=== PATIENT | male | born 1935 | race Caucasian/White ===

== ENCOUNTER 2018-09-04 16:38 | Emergency (ER) | payer OTHER ==
[~2018-09-04] VITALS: Ht 177.8 cm; Wt 81.6 kg
[2018-09-04 16:38] VITALS: BP_SYST 165
[2018-09-04 17:29] LABS: ANION GAP 7 (5-15); CALCIUM 8.7 mg/dL (8.4-11.0); CHLORIDE 105 mmol/L (98-107); CREATININE 1.71 mg/dL (0.55-1.30); GLUCOSE 168 mg/dL (70-99); POTASSIUM 3.9 mmol/L (3.5-5.1); SODIUM SERUM 137 mmol/L (136-145); UREA NITROGEN, BLOOD 25 mg/dL (8-21)
[2018-09-04 17:32] LABS: PROTHROMBIN TIME 10.1 SECS (9.5-12.5)
[2018-09-04 17:34] LABS: BASOPHILS % (AUTO) 0.5 % (0.0-2.0); EOSINOPHILS # (AUTO) 0.2 K/uL (0.0-0.4); EOSINOPHILS % (AUTO) 3.6 % (0.0-4.0); HEMATOCRIT 42.9 % (36-54); HEMOGLOBIN 14.2 g/dL (14.0-18.0); LYMPHOCYTES # (AUTO) 1.4 K/uL (1.0-5.5); LYMPHOCYTES % (AUTO) 25.3 % (20.5-51.5); MEAN CORPUSCULAR HEMOGLOBIN 28 pg (27-31); MEAN CORPUSCULAR HGB CONC 33 % (32-36); MEAN CORPUSCULAR VOLUME 84 fL (79.0-98.0); MONOCYTES # (AUTO) 0.6 K/uL (0.0-1.0); MONOCYTES % (AUTO) 9.8 % (1.7-9.3); NEUTROPHILS # (AUTO) 3.5 K/uL (1.8-7.7); NEUTROPHILS % (AUTO) 60.8 % (40.0-70.0); PLATELET COUNT (AUTO) 163 K/uL (130-430); RED BLOOD CELL COUNT(AUTO) 5.09 MIL/uL (4.2-6.2); RED CELL DISTRIBUTION WIDTH 13.6 % (9.0-15.0); WHITE BLOOD COUNT (AUTO) 5.7 K/uL (4.8-10.8)
[2018-09-04 17:47] LABS: ALANINE AMINOTRANSFERASE 23 U/L (12-78); ALBUMIN 3.6 g/dL (3.4-4.8); ASPARTATE AMINOTRANSFERASE 15 U/L (10-37); TOTAL BILIRUBIN 0.3 mg/dL (0.0-1.0)
[2018-09-04 19:00] VITALS: BP_SYST 158
== END 2018-09-04 19:00 | disposition home or self-care (01) ==
LOC: SED 16:38
DX: N28.9 Disorder of kidney and ureter, unspecified (principal); R55 Syncope and collapse; K21.9 Gastro-esophageal reflux disease without esophagitis; R03.0 Elevated blood-pressure reading, without diagnosis of hypertension
CPT/HCPCS: 36415; 70450-TC; 71045; 80053; 82550-TC; 84484; 85025; 85610-TC; 85730-TC; 99284

== ENCOUNTER 2019-04-30 20:43 | Emergency (ER) | payer OTHER ==
[~2019-04-30] VITALS: Ht 157.5 cm; Wt 76.2 kg
[2019-04-30 20:58] VITALS: BP_SYST 166
[2019-04-30] MEDS ORDERED: fentaNYL CITRATE/PF 100 MCG/2 ML AMP IVP ONE (21:15)
[2019-04-30] MEDS ORDERED: ONDANSETRON HCL 4 MG/2 ML VIAL IVP ONE (21:15)
[2019-04-30] MEDS ORDERED: NACL 0.9% 1,000 ML IV ONE (22:00)
[2019-04-30] MEDS ORDERED: MORPHINE 4 MG/ML INJ. SYRINGE IVP ONE (22:00)
[2019-04-30 22:01] LABS: ANION GAP 4 (5-15); CALCIUM 9.2 mg/dL (8.4-11.0); CHLORIDE 102 mmol/L (98-107); CREATININE 1.79 mg/dL (0.55-1.30); GLUCOSE 160 mg/dL (70-99); POTASSIUM 3.7 mmol/L (3.5-5.1); SODIUM SERUM 136 mmol/L (136-145); UREA NITROGEN, BLOOD 21 mg/dL (8-21)
[2019-04-30 22:04] LABS: PROTHROMBIN TIME 10.4 SECS (9.5-12.5)
[2019-04-30 22:06] LABS: ALANINE AMINOTRANSFERASE 22 U/L (12-78); ASPARTATE AMINOTRANSFERASE 17 U/L (10-37); TOTAL BILIRUBIN 0.4 mg/dL (0.0-1.0)
[2019-04-30 22:23] LABS: BASOPHILS # (AUTO) 0.1 K/uL (0.0-0.2); EOSINOPHILS # (AUTO) 0.2 K/uL (0.0-0.4); EOSINOPHILS % (AUTO) 4.5 % (0.0-4.0); HEMATOCRIT 39.2 % (36-54); HEMOGLOBIN 13.2 g/dL (14.0-18.0); LYMPHOCYTES # (AUTO) 1.1 K/uL (1.0-5.5); MEAN CORPUSCULAR HEMOGLOBIN 29 pg (27-31); MEAN CORPUSCULAR HGB CONC 34 % (32-36); MEAN CORPUSCULAR VOLUME 85 fL (79.0-98.0); MONOCYTES # (AUTO) 0.5 K/uL (0.0-1.0); MONOCYTES % (AUTO) 10.5 % (1.7-9.3); NEUTROPHILS # (AUTO) 3.1 K/uL (1.8-7.7); PLATELET COUNT (AUTO) 132 K/uL (130-430); RED BLOOD CELL COUNT(AUTO) 4.61 MIL/uL (4.2-6.2); RED CELL DISTRIBUTION WIDTH 15.4 % (9.0-15.0)
[2019-04-30 23:33] LABS: BILIRUBIN,URINE NEGATIVE (NEGATIVE); CLARITY/URINE CLEAR (CLEAR); COLOR,URINE YELLOW (YELLOW); GLUCOSE,URINE NEGATIVE (NEGATIVE); KETONES,URINE NEGATIVE (NEGATIVE); LEUKOCYTE ESTERASE ,URINE NEGATIVE (NEGATIVE); NITRITE, URINE NEGATIVE (NEGATIVE); PROTEIN URINE 1+ (NEGATIVE); UROBILINOGEN,URINE 0.2 (0.2-1.0)
[2019-04-30 23:34] LABS: BLOOD, URINE TRACE (NEGATIVE)
[2019-04-30 23:40] LABS: WBC,URINE 0-3 /HPF (0-3)
[2019-04-30 23:41] LABS: BACTERIA,URINE FEW /HPF (None Seen)
[2019-05-01] VITALS: BP_SYST 154
== END 2019-05-01 | disposition home or self-care (01) ==
LOC: SED 20:43
DX: R51 Headache (principal); K21.9 Gastro-esophageal reflux disease without esophagitis
CPT/HCPCS: 36415; 70450; 80053; 81000; 85025; 85610; 85730; 96374; 96375; 99284; J2270; J2405; J3010; J7030

== ENCOUNTER 2019-09-21 10:55 | Emergency (ER) | payer BC, OTHER ==
[~2019-09-21] VITALS: Ht 172.7 cm; Wt 77.1 kg
[2019-09-21 11:20] VITALS: BP_SYST 164
[2019-09-21] MEDS ORDERED: NACL 0.9% 1,000 ML IV ONE (11:30)
[2019-09-21 11:45] LABS: BASOPHILS # (AUTO) 0.1 K/uL (0.0-0.2); BASOPHILS % (AUTO) 1.2 % (0.0-2.0); EOSINOPHILS # (AUTO) 0.1 K/uL (0.0-0.4); EOSINOPHILS % (AUTO) 1.8 % (0.0-4.0); HEMATOCRIT 43.8 % (36-54); HEMOGLOBIN 14.2 g/dL (14.0-18.0); LYMPHOCYTES # (AUTO) 0.9 K/uL (1.0-5.5); LYMPHOCYTES % (AUTO) 11.7 % (20.5-51.5); MEAN CORPUSCULAR HEMOGLOBIN 28 pg (27-31); MEAN CORPUSCULAR HGB CONC 32 % (32-36); MEAN CORPUSCULAR VOLUME 86 fL (79.0-98.0); MONOCYTES # (AUTO) 0.7 K/uL (0.0-1.0); MONOCYTES % (AUTO) 8.6 % (1.7-9.3); NEUTROPHILS # (AUTO) 6.1 K/uL (1.8-7.7); NEUTROPHILS % (AUTO) 76.7 % (40.0-70.0); PLATELET COUNT (AUTO) 142 K/uL (130-430); RED BLOOD CELL COUNT(AUTO) 5.08 MIL/uL (4.2-6.2); RED CELL DISTRIBUTION WIDTH 15.2 % (9.0-15.0)
[2019-09-21 11:52] LABS: CHLORIDE 108 mmol/L (98-107); CREATININE 1.45 mg/dL (0.55-1.30); GLUCOSE 94 mg/dL (70-99); POTASSIUM 5.1 mmol/L (3.5-5.1); SODIUM SERUM 138 mmol/L (136-145); UREA NITROGEN, BLOOD 26 mg/dL (8-21)
[2019-09-21 11:54] LABS: ANION GAP < 3 (5-15)
[2019-09-21 11:56] LABS: PROTHROMBIN TIME 10.3 SECS (9.5-12.5)
[2019-09-21 11:58] LABS: ALANINE AMINOTRANSFERASE 24 U/L (12-78); ALBUMIN 3.5 g/dL (3.4-4.8); ASPARTATE AMINOTRANSFERASE 15 U/L (10-37); TOTAL BILIRUBIN 0.4 mg/dL (0.0-1.0)
[2019-09-21 11:59] LABS: ALCOHOL, BLOOD < 3 mg/dL (<10)
== END 2019-09-21 15:05 | disposition left against medical advice (07) ==
LOC: SED 10:55
DX: G45.9 Transient cerebral ischemic attack, unspecified (principal); R42 Dizziness and giddiness; R53.1 Weakness; I10 Essential (primary) hypertension; E11.9 Type 2 diabetes mellitus without complications; K21.9 Gastro-esophageal reflux disease without esophagitis
CPT/HCPCS: 36415; 70450; 71045; 80053; 82550; 83605; 84484; 85025; 85610; 85730; 87040; 93005; 96360; 99285; G0482; J7030